=== PATIENT | female | born 1960 | race Caucasian/White ===

== ENCOUNTER 2024-06-24 18:40 | Emergency (ER) | payer SELFPAY ==
[~2024-06-24] VITALS: Ht 177.8 cm; Wt 86.2 kg
[2024-06-24 18:48] VITALS: BP 168/92
[2024-06-24] MEDS ORDERED: Diph, Acellular Pertussis, Tet 0.5 ML/VIAL (Tdap) SDV IM STA (19:01)
[2024-06-24] MEDS ORDERED: NEOMYCIN-BACITRACIN-POLYMYXIN 0.5 GM/PAK PAK TOP STA (19:01)
[2024-06-24] MEDS ORDERED: SODIUM CHLORIDE 1,000 ML BTL IR STA (19:01)
[2024-06-24] MEDS ORDERED: POVIDONE IODINE 0.5 OZ/BTL TOP STA (19:01)
[2024-06-24] MEDS ORDERED: LIDOcaine HCl 1% (Local Anesth.) 20 ML VIAL STI ONE (19:05)
[2024-06-24] MEDS ORDERED: AMOXICILLIN & POT CLAVULANATE 875 MG/TAB PO ONE (19:05)
[2024-06-24] MEDS ORDERED: LIDOcaine HCl 1% (Local Anesth.) 20 ML VIAL ONE (19:28)
[2024-06-24] MEDS ORDERED: AMOX/K CLAV875 M1 PO (20:04)
[2024-06-24] MEDS ORDERED: TRAMADOL HYDROC50 M1 PO (20:04)
[2024-06-24] MEDS ORDERED: traMADol HCL 50 MG/TAB PO ONE (20:05)
[2024-06-24 20:26] VITALS: BP 168/92
== END 2024-06-24 20:44 | disposition home or self-care (01) | DRG 605 ==
LOC: ED 18:40
PROC: 0HQGXZZ Repair Left Hand Skin, External Approach (ICD-10-PCS; principal; 2024-06-24)
PROC: 0HQFXZZ Repair Right Hand Skin, External Approach (ICD-10-PCS; 2024-06-24)
PROC: 0HQKXZZ Repair Right Lower Leg Skin, External Approach (ICD-10-PCS; 2024-06-24)
DX: S61.251A Open bite of left index finger without damage to nail, initial encounter (principal); S61.250A Open bite of right index finger without damage to nail, initial encounter; S81.851A Open bite, right lower leg, initial encounter; W54.0XXA Bitten by dog, initial encounter
CPT/HCPCS: 90715

== ENCOUNTER 2024-07-07 18:39 | Emergency (ER) | payer SELFPAY ==
[2024-07-07] VITALS (7 sets, daily range): BP systolic 124–148; BP diastolic 60–78
[~2024-07-07] VITALS: Ht 177.8 cm; Wt 86.2 kg
[~2024-07-07 18:39] MED LIST: AMOX/K CLAV875 M1 PO; TRAMADOL HYDROC50 M1 PO
[2024-07-07] MEDS ORDERED: BACTRIM DS1 TAB PO (20:23)
[2024-07-07] MEDS ORDERED: METRONIDAZOLE500 MG PO (20:23)
[2024-07-07] MEDS ORDERED: SULFAMETHOXAZOLE W/TRIMETHOPRI 1 COMBO TAB PO ONE (20:25)
[2024-07-07] MEDS ORDERED: metroNIDAZOLE 500 MG/TAB PO ONE (20:25)
== END 2024-07-07 20:48 | disposition home or self-care (01) | DRG 603 ==
LOC: ED 18:39
DX: L03.115 Cellulitis of right lower limb (principal); S61.251D Open bite of left index finger without damage to nail, subsequent encounter; S61.250D Open bite of right index finger without damage to nail, subsequent encounter; S81.851D Open bite, right lower leg, subsequent encounter; W54.0XXD Bitten by dog, subsequent encounter

== ENCOUNTER 2024-08-23 11:59 | Emergency (ER) | payer SELFPAY ==
[~2024-08-23] VITALS: Ht 177.8 cm; Wt 90.7 kg
[~2024-08-23 11:59] MED LIST changes: +BACTRIM DS1 TAB PO; +METRONIDAZOLE500 MG PO
[2024-08-23 12:07] VITALS: BP 171/81
[2024-08-23 12:14] VITALS: BP 169/97
[2024-08-23] MEDS ORDERED: ONDANSETRON HCl 4 MG/2 ML SDV IV ONE (12:35)
[2024-08-23] MEDS ORDERED: MECLIZINE HCL 25 MG/TAB PO ONE (12:35)
[2024-08-23 13:08] LABS: URINE BLOOD DIPSTICK Trace-intact (NEGATIVE); URINE GLUCOSE - DIPSTICK Negative (NEGATIVE); URINE KETONE 15 mg/dL (NEGATIVE); URINE LEUK ESTERASE Negative (NEGATIVE); URINE NITRITE - DIPSTICK Negative (Negative); URINE PH 7.5 (4.5-8.0); URINE PROTEIN - DIPSTICK Trace mg/dL (NEG-TRACE)
[2024-08-23 13:08] LABS: BASO% 0.2 % (0-3); EOS% 0.3 % (0-8); HEMATOCRIT 40.6 % (37.0-47.0); HEMOGLOBIN 13.5 g/dl (12.0-16.0); IMMATURE GRANULOCYTES 0.2 % (0.0-5.0); LYMPH% 18.3 % (15-41); MEAN CELL VOLUME 83.9 fL CALC (80.0-100.0); MEAN CORPUSCULAR HGB 27.9 pG CALC (26.0-32.0); MEAN CORPUSCULAR HGB CONC 33.3 g/dL CAL (32.0-36.0); MONO% 4.9 % (2-13); NEUT# 4.87 thou/uL (2.00-7.15); NEUT% 76.1 % (42-76); RED BLOOD COUNT 4.84 mill/uL (4.20-5.60)
[2024-08-23 13:09] LABS: URINE COLOR Yellow
[2024-08-23 13:27] LABS: ALBUMIN 4.5 g/dL (3.2-5.0); BILIRUBIN, TOTAL 1.8 mg/dL (0.02-1.3); CREATININE 0.5 mg/dL (0.5-1.0); POTASSIUM 3.6 mmol/l (3.5-5.1); TOTAL PROTEIN 8.2 g/dL (6.3-8.2)
[2024-08-23 13:53] VITALS: BP 169/97
[2024-08-23] MEDS ORDERED: ZOFRAN4 MG/TAB PO (13:53)
[2024-08-23] MEDS ORDERED: MECLIZINE25 M1 PO (13:53)
== END 2024-08-23 14:00 | disposition home or self-care (01) | DRG 149 ==
LOC: ED 11:59
PROVIDERS: Family Medicine
DX: H81.10 Benign paroxysmal vertigo, unspecified ear (principal); H40.9 Unspecified glaucoma; H54.62 Unqualified visual loss, left eye, normal vision right eye
CPT/HCPCS: J2405